=== PATIENT | male | born 1960 | race Caucasian/White ===

== ENCOUNTER 2024-01-16 14:30 | Emergency (ER) | payer BC, SELFPAY ==
[2024-01-16 14:32] VITALS: BP 197/96
[2024-01-16 14:50] LABS: % Basophils 0.5 % (0-2); % Eosinophils 1.2 % (0-6); % Immature Granulocytes 0.2 % (0-0.5); % Lymphocytes 20.9 % (20.5-51.1); % Monocytes 4.8 % (1.7-9.3); % Neutrophils 72.4 % (42.2-75.2); Absolute Eosinophils 0.1 10^3/uL (0-0.7); Absolute Lymphocytes 1.7 10^3/uL (1.2-3.4); Absolute Monocytes 0.4 10^3/uL (0.1-0.6); Hematocrit 47.7 % (39.0-52.0); Hemoglobin 16.5 g/dL (13.0-18.0); Mean Corp Hgb Conc. 34.6 g/dL (33.0-37.0); Mean Corpuscular Hgb 30.5 pg (27.0-31.0); Mean Corpuscular Volume 88.2 fL (80.0-94.0); Mean Platelet Volume 9.2 fL (7.4-10.4); Nucleated Red Blood Cells % 0 % (-); Platelet Count 292 10^3/uL (130-400); Red Blood Cell Count 5.41 10^6/uL (4.70-6.10); Red Cell Dist. Width 11.9 % (11.5-14.5); White Blood Cell Count 8.3 10^3/uL (4.8-10.8)
[2024-01-16 15:18] LABS: ALT (SGPT) 14 U/L (0-50); AST (SGOT) 22 U/L (17-59); Albumin 5.1 g/dl (3.5-5.0); Alkaline Phosphatase 89 U/L (38-126); Blood Urea Nitrogen 15 mg/dl (9-20); Calcium 10.3 mg/dl (8.4-10.2); Carbon Dioxide 18 mmol/L (22-30); Chloride 107 mmol/L (98-107); Glucose 127 mg/dl (70-99); Potassium 4.4 mmol/L (3.5-5.1); Sodium 138 mmol/L (135-145); Total Bilirubin 1.1 mg/dl (0.2-1.3); Total Protein 7.8 g/dl (6.3-8.2); eGFR > 60.00
[2024-01-16 15:23] LABS: Troponin I < 0.012 ng/ml
[2024-01-16 15:44] VITALS: BP 154/86
[2024-01-16 15:45] VITALS: BMI 32.9
[2024-01-16 17:55] LABS: Troponin I < 0.012 ng/ml
--- NOTE | 2024-01-16 17:55 | ED.GENMED ---
History of Present Illness
General
Chief Complaint: Chest Pain
Source: patient
Exam Limitations: none
Time Seen by Provider: 01/16/24 16:04
History of Present Illness
History of Present Illness:
63-year-old male who presents with left-sided chest pain. Patient states has been ongoing for about a week and has been intermittent. Today it has been there since he woke up this morning. He states when he belches seem to feel little better.
Sort of an ache under his left areola. It sits sort of right in that 1 spot. Not worse with breathing. Not worse with moving. No rash. No shortness of breath. No back pain. No motor weakness or radiation of the pain. The patient does admit
that he has not been taking his blood pressure or cholesterol medication for about a year since he saw his doctor last.
Past History
Past History
ED Past Medical History: HTN, Hypercholesterolemia and Other (Kidney stones, rosacea)
Phy Exam
Physical Exam
Physical Exam:
CONSTITUTIONAL Patient alert and oriented to person, place and time. Well-appearing. Vital signs reviewed.
HEAD atraumatic, normocephalic.
EYES eyelids normal to inspection, Extraocular muscles intact, Conjunctiva normal, Sclera normal.
NECK normal range of motion, Trachea midline, no jugular venous distention.
RESPIRATORY CHEST No respiratory distress noted, Chest expansion equal, Bilateral breath sounds clear.
CARDIOVASCULAR regular rate and rhythm, Heart sounds normal.
ABDOMEN abdomen nontender, Bowel sounds normal. No distention.
BACK normal inspection, no obvious deformities
UPPER EXTREMITY range of motion normal, Motor strength normal, no cyanosis, no edema.
LOWER EXTREMITY range of motion normal, Motor strength normal, no cyanosis, no edema.
NEURO Speech normal, No focal motor deficits, Navin coma scale 15, Memory normal, Cranial Nerves intact to screening exam.
SKIN skin warm, dry, and normal in color.
PSYCHIATRIC patient oriented to person place and time, Normal affect.
Scores
Heart Score for Chest Pain Patients
STEMI patient?: No
History: Slightly or Non-Suspicious
ECG: Normal
Age: >45 - <65 years
Risk Factors: 1 or 2 Risk Factors
Troponin: </= Normal Limit
Heart Score for Chest Pain Patients: 2
Heart Score Risk: 2.5% MACE over next 6 weeks
Course
Orders/Labs/Results
Orders:
Orders
01/16/24 14:35
Electrocardiogram (*1) Urgent
Reason for Study: Chest Pain
EKG- Treatment ONCE
01/16/24 14:41
Complete Blood Count/With Diff Urgent
Comprehensive Metabolic Panel Urgent
Troponin I Urgent
01/16/24 16:30
CR Chest - 2 Views Urgent
Comment:
Reason For Exam: L cp
01/16/24 16:45
Troponin I Urgent
Abnormal Lab Results
01/16/24
14:41
Carbon Dioxide 18 L mmol/L
(22-30)
Glucose 127 H mg/dl
(70-99)
Calcium 10.3 H mg/dl
(8.4-10.2)
Albumin 5.1 H g/dl
(3.5-5.0)
01/16/24 14:41
01/16/24 14:41
Vital Signs
Initial and Last Documented VS:
Initial Vital Signs
Temp Pulse Resp BP Pulse Ox
98.2 F 66 18 197/96 99
01/16/24 14:32 01/16/24 14:32 01/16/24 14:32 01/16/24 14:32 01/16/24 14:32
Last Documented Vital Signs
Temp Pulse Resp BP Pulse Ox
98.2 F 63 18 154/86 97
01/16/24 14:32 01/16/24 15:45 01/16/24 15:45 01/16/24 15:44 01/16/24 15:45
MDM/Problems Addressed
MDM/Problems Addressed:
Atypical chest pain
*Radiology
Radiology exam reviewed: all reviewed NAD by ED Provider
*Pulse Oximetry
Patient hypoxic: no
*EKG
Interpreted by ED Provider?: Yes
Interpretation: normal
Rate: normal
Rhythm: sinus
[place]: normal axis
Ischemia: no ischemia
*Round Cutter Operator Interpretation
Rate: normal
Interpretation: normal
Rhythm: sinus
*Critical Care Note
Total Time (30-74mins, 75-104mins- exclusive of procedures): Not Applicable
Data Reviewed
Review of Other/Old Records Reveals: Other (Previous EKG from December 2014 reviewed)
Source: patient and spouse
Prescriptions/Medications Considered But Not Given:
Consider nitroglycerin but low suspicion for ACS
Patient Management
Escalation/DeEscalation of care consider admission/obs:
ED workup negative including 2 troponins despite pain all day. Symptoms are atypical but will have the patient follow-up with cardiology. Patient referred to cardiology follow-up follow-up hotline
ED Attending Note
-
Portions of this chart may have been created with voice recognition software.� Occasional wrong word or��sound alike� substitutions may have occurred due to the inherent limitations of voice recognition software.
Discharge Plan
Departure
Patient Disposition: Home (Routine Discharge)
Date of Disposition: 01/16/24
Time of Disposition: 17:59
Patient with high blood pressure during this ER visit?: Yes
Discharge Problem:
Atypical chest pain
Instructions: Chest Pain CBC Follow Up
Prescriptions:
No Action
atorvastatin 20 mg Tablet
20 mg PO 1800
lisinopril 10 mg Tablet
10 mg PO 1800
doxycycline monohydrate 40 mg Capsule,Ir - Delay Rel,Biphase
40 mg PO 1800
Referrals:
Mariana Beavers, [Family Provider] -
Activity Restrictions/Additional Instructions:
Please take 81 mg of aspirin a day. Please avoid strenuous or exertional activity until cleared by cardiology. Please see cardiology in the next 48 hours for reevaluation. Return immediately for worsening pain, shortness breath, palpitations,
sweating, nausea, weakness of any kind, numbness, tingling or any other concerns.
Cardiology has been notified and a follow up appointment has been requested. Someone will call you on the next business day to schedule a follow up appointment.
Interventions
Interventions:
*Risk Screen - Suicide Last Done: 01/16/24 14:32
*General Assessment Last Done: 01/16/24 14:32
*Neglect/Abuse Screening Last Done: 01/16/24 14:32
ED- Fall Risk Assessment Last Done: 01/16/24 15:45
*ED COVID-19 Vaccine History Last Done: 01/16/24 15:45
ED- Cardiac Assessment Last Done: 01/16/24 15:45
Discharge Date and Time
Print Language: KINYARWANDA
[2024-01-16 17:56] VITALS: BP 145/97
[2024-01-16 18:00] VITALS: BP 150/92
== END 2024-01-16 18:22 | disposition home or self-care (01) ==
LOC: EMR 14:30
PROVIDERS: Emergency Medicine; EMERGENCY PHYSICIAN Emergency Medicine; FAMILY PHYSICIAN Family Medicine
DX: R07.89 Other chest pain (principal); I10 Essential (primary) hypertension; E78.00 Pure hypercholesterolemia, unspecified; L71.9 Rosacea, unspecified
CPT/HCPCS: 99283; 71046; 80053; 84484; 85025; 93005

== ENCOUNTER 2024-01-25 10:52 | Emergency (ER) | payer BC, SELFPAY ==
[2024-01-25 11:02] VITALS: BP 160/88
[2024-01-25 11:31] VITALS: BMI 32.4
[2024-01-25 11:52] LABS: % Basophils 0.4 % (0-2); % Eosinophils 0.8 % (0-6); % Immature Granulocytes 0.4 % (0-0.5); % Lymphocytes 17.1 % (20.5-51.1); % Monocytes 4.8 % (1.7-9.3); % Neutrophils 76.5 % (42.2-75.2); Absolute Eosinophils 0.1 10^3/uL (0-0.7); Absolute Lymphocytes 1.4 10^3/uL (1.2-3.4); Absolute Monocytes 0.4 10^3/uL (0.1-0.6); Hematocrit 43.8 % (39.0-52.0); Hemoglobin 16.1 g/dL (13.0-18.0); Mean Corp Hgb Conc. 36.8 g/dL (33.0-37.0); Mean Corpuscular Hgb 30.8 pg (27.0-31.0); Mean Corpuscular Volume 83.7 fL (80.0-94.0); Mean Platelet Volume 9.3 fL (7.4-10.4); Nucleated Red Blood Cells % 0 % (-); Platelet Count 312 10^3/uL (130-400); Red Blood Cell Count 5.23 10^6/uL (4.70-6.10); Red Cell Dist. Width 11.9 % (11.5-14.5); White Blood Cell Count 7.9 10^3/uL (4.8-10.8)
[2024-01-25 12:00] VITALS: BP 141/87
--- NOTE | 2024-01-25 12:08 | ED.GENMED ---
History of Present Illness
General
Chief Complaint: Chest Pain
Source: patient and records
Exam Limitations: none
Time Seen by Provider: 01/25/24 11:19
History of Present Illness
History of Present Illness:
Patient is a 63-year-old male presents to the emergency department complaining of left-sided chest pressure. Patient was seen here on January 15 for similar symptoms and was seen by cardiology. Patient is scheduled for a stress test in 2 days.
Patient is then to have a echo approximately in a month. 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 Patient developed significant pressure while laying down in his left chest. Patient did take Advil and seem to help.
Patient denies any palpitations. Patient does admit to mild shortness of breath but denies diaphoresis. Patient states he has the same symptoms occasionally with exertion. Patient does have a history of hypertension and elevated cholesterol and
has been noncompliant in the past with medication. There is a family history of heart disease in his mother. Patient denies diabetes. Patient does not smoke. Patient denies fever or chills. Patient denies cough, nasal congestion or sore throat.
Patient denies any GI or symptoms. Patient denies any leg pain or swelling. Patient does admit to frequent heartburn. In addition patient states he is under increased stress as his [id number] in the past week.
Past History
Past History
ED Past Medical History: HTN, Hypercholesterolemia and Other (Kidney stones, rosacea); Negative IDDM or NIDDM
Social History
Tobacco: Non-smoker
Family History
Family History: CAD
Review of Systems
Review of Systems
All Other Systems: ROS reviewed and negative except as documented in HPI and ROS
Constitutional: Denies fever or chills
EENT: Reports no symptoms
Respiratory: Reports trouble breathing; Denies cough
Cardiac: Reports chest pain; Denies diaphoresis or palpitations
ABD/GI: Reports no symptoms
: Reports no symptoms
Musculoskeletal: Reports no symptoms
Skin: Reports no symptoms
Neurological: Reports no symptoms
Hematologic/Lymphatic: Reports no symptoms
Psychiatric: Reports other (Increased stress as his [id number] within the last week)
Phy Exam
Physical Exam
Physical Exam:
Physical Exam
General: No apparent distress, alert and appropriate, well nourished, well hydrated
HENT: Normocephalic, supple with no lymphadenopathy, no thyromegaly
Eyes: Clear sclera, conjuctiva without injection
Heart: Regular rhythm and rate. No S3, S4. No murmur. No NVD, bruit
Lungs: No respiratory distress, no stridor, lung sounds clear and equal bilaterally, chest wall symmetrical and nontender
Abdomen: Soft, nontender, no organomegaly, no CVA tenderness, BS good
Neuro: Alert and oriented x 3, CN II - XII intact, no motor focality, no cerebellar dysfunction
Skin: no rash
Psychiatric: well kept. interactive and cooperative. Mildly anxious
Extremities: No edema, cyanosis, tenderness, Good and equal peripheral pulses.
Scores
Heart Score for Chest Pain Patients
STEMI patient?: No
History: Slightly or Non-Suspicious
ECG: Normal
Age: >45 - <65 years
Risk Factors: 1 or 2 Risk Factors
Troponin: </= Normal Limit
Heart Score for Chest Pain Patients: 2
Heart Score Risk: 2.5% MACE over next 6 weeks
Course
Orders/Labs/Results
Orders:
Orders
01/25/24 10:54
EKG [Electrocardiogram (*1)] Urgent
Reason for Study: Chest Pain
EKG- Treatment ONCE
01/25/24 11:44
Basic Metabolic Panel Urgent
Complete Blood Count/With Diff Urgent
Troponin I Urgent
01/25/24 12:42
Mag Hydrox/Al Hydrox/Simeth [Maalox] 30 ml Phenobarb/Hyoscy/Atropine/Scop [] 10 ml Viscous Lidocaine 2% [Xylocaine Viscous Cup] 10 ml PO NOW
Pantoprazole [Protonix IV] 80 mg IV NOW STA
Sucralfate [Carafate] 1 gram PO NOW STA
01/25/24 13:02
Mag Hydrox/Al Hydrox/Simeth [Maalox] 30 ml .ROUTE .STK-MED ONE
Phenobarb/Hyoscy/Atropine/Scop [] 10 ml .ROUTE .STK-MED ONE
Viscous Lidocaine 2% [Xylocaine Viscous Cup] 15 ml .ROUTE .STK-MED ONE
01/25/24 13:19
Basic Metabolic Panel Urgent
01/25/24 13:39
Troponin I Urgent
01/25/24 14:38
CMP [Comprehensive Metabolic Panel] Urgent
Abnormal Lab Results
01/25/24 01/25/24
11:44 13:19
Neutrophils % 76.5 H %
(42.2-75.2)
Lymphocytes % 17.1 L %
(20.5-51.1)
Carbon Dioxide 18 L mmol/L 18 L mmol/L
(22-30) (22-30)
Glucose 127 H mg/dl 115 H mg/dl
(70-99) (70-99)
01/25/24 11:44
Vital Signs
Initial and Last Documented VS:
Initial Vital Signs
Temp Pulse Resp BP Pulse Ox
98.2 F 83 19 160/88 97
01/25/24 11:02 01/25/24 11:02 01/25/24 11:02 01/25/24 11:02 01/25/24 11:02
Last Documented Vital Signs
Temp Pulse Resp BP Pulse Ox
98.2 F 62 11 136/87 97
01/25/24 11:02 01/25/24 14:15 01/25/24 14:15 01/25/24 14:00 01/25/24 14:15
*Radiology
Radiology exam reviewed: other (na)
*Pulse Oximetry
Patient hypoxic: no
*EKG
Interpreted by ED Provider?: Yes
EKG Intrepretation Date: 01/25/24
EKG Intrepretation Time: 12:15
Interpretation: abnormal
Comparison EKG: no changes
Heart Rate: 75
Rate: normal
Rhythm: sinus and PAC's
[place]: normal axis
Interval: normal interval
QRS Pattern: normal QRS
Ischemia: non-specific ST changes
*Foot Drill Operator Interpretation
Rate: normal
Interpretation: abnormal
Heart Rate: 75
Rhythm: sinus and PAC's
*Critical Care Note
Total Time (30-74mins, 75-104mins- exclusive of procedures): Not Applicable
Update Note
Update Note:
Patient's second troponin is unremarkable. I do not believe this to be cardiac. Could be musculoskeletal versus GI versus anxiety. Patient has stress test scheduled for Saturday. Patient does not require admission.
ED Attending Note
-
Portions of this chart may have been created with voice recognition software.� Occasional wrong word or��sound alike� substitutions may have occurred due to the inherent limitations of voice recognition software.
Discharge Plan
Departure
Patient Disposition: Home (Routine Discharge)
Date of Disposition: 01/25/24
Time of Disposition: 14:47
Patient with high blood pressure during this ER visit?: Yes
Condition: Good
Covid-19: Not Applicable
Discharge Problem:
Non-cardiac chest pain
Instructions: Acid Reflux and GERD in Adults (DC), Chest Pain CBC Follow Up, BLOOD PRESSURE
Prescriptions:
New
pantoprazole [Protonix] 40 mg tablet,delayed release (DR/EC)
40 mg PO BID Qty: 30 0RF
No Action
atorvastatin 20 mg Tablet
20 mg PO 1800
lisinopril 10 mg Tablet
10 mg PO 1800
doxycycline monohydrate 40 mg Capsule,Ir - Delay Rel,Biphase
40 mg PO 1800
Referrals:
Hayden Whittington MD [Family Provider] - Keep scheduled appt
Activity Restrictions/Additional Instructions:
Continue present medications and therapy. Make sure to have your stress test done on Saturday as scheduled. Any problems please return.
Interventions
Interventions:
*Risk Screen - Suicide Last Done: 01/25/24 11:02
*General Assessment Last Done: 01/25/24 11:02
*Neglect/Abuse Screening Last Done: 01/25/24 11:02
ED- Fall Risk Assessment Last Done: 01/25/24 11:31
*ED COVID-19 Vaccine History Last Done: 01/25/24 11:31
*Nursing Disposition Last Done: 01/25/24 15:02
ED- Cardiac Assessment Last Done: 01/25/24 11:31
Discharge Date and Time
Discharge Date/Time: 01/25/24 15:02
Print Language: LIBYAN
[2024-01-25 12:15] LABS: Troponin I < 0.012 ng/ml
[2024-01-25 12:21] LABS: Blood Urea Nitrogen 18 mg/dl (9-20); Carbon Dioxide 18 mmol/L (22-30); Chloride 107 mmol/L (98-107); Estimated Creatinine Clearance 86 ml/min; Glucose 127 mg/dl (70-99); Sodium 137 mmol/L (135-145); eGFR > 60.00
[2024-01-25 13:00] VITALS: BP 134/92
[2024-01-25] MEDS: MAALOX 50 PO (13:26)
[2024-01-25] MEDS: PROTONIX IV 80 MG IV (13:26)
[2024-01-25] MEDS: CARAFATE 1 GRAM PO (13:36)
[2024-01-25 13:56] LABS: Blood Urea Nitrogen 18 mg/dl (9-20); Calcium 9.7 mg/dl (8.4-10.2); Carbon Dioxide 18 mmol/L (22-30); Chloride 107 mmol/L (98-107); Estimated Creatinine Clearance 96 ml/min; Glucose 115 mg/dl (70-99); Sodium 137 mmol/L (135-145); eGFR > 60.00
[2024-01-25 14:00] VITALS: BP 136/87
[2024-01-25 14:14] LABS: Troponin I < 0.012 ng/ml
[2024-01-25 15:42] LABS: ALT (SGPT) 13 U/L (0-50); AST (SGOT) 20 U/L (17-59); Alkaline Phosphatase 84 U/L (38-126); Blood Urea Nitrogen 17 mg/dl (9-20); Carbon Dioxide 16 mmol/L (22-30); Chloride 108 mmol/L (98-107); Estimated Creatinine Clearance 86 ml/min; Glucose 122 mg/dl (70-99); Potassium 4.4 mmol/L (3.5-5.1); Sodium 136 mmol/L (135-145); Total Bilirubin 1.6 mg/dl (0.2-1.3); Total Protein 7.6 g/dl (6.3-8.2); eGFR > 60.00
== END 2024-01-25 15:02 | disposition home or self-care (01) ==
LOC: EMR 10:52
PROVIDERS: EMERGENCY PHYSICIAN Emergency Medicine; FAMILY PHYSICIAN Internal Medicine Cardiovascular Disease
DX: R07.89 Other chest pain (principal); I10 Essential (primary) hypertension; E78.00 Pure hypercholesterolemia, unspecified; Z82.49 Family history of ischemic heart disease and other diseases of the circulatory system; Z87.442 Personal history of urinary calculi
CPT/HCPCS: 99283; 96374; 80048; 80053; 84484; 85025; 93005

== ENCOUNTER → 2024-01-27 12:34 | Outpatient (REF) | payer BC, SELFPAY | LOC: RCS 12:34 | PROVIDERS: ATTENDING PHYSICIAN Internal Medicine Cardiovascular Disease; FAMILY PHYSICIAN Family Medicine | DX: E78.5 Hyperlipidemia, unspecified (principal); I10 Essential (primary) hypertension | CPT/HCPCS: 93017 ==

== ENCOUNTER → 2024-02-06 10:08 | Outpatient (REF) | payer BC, SELFPAY ==
[2024-02-06 13:36] LABS: Albumin 4.7 g/dl (3.5-5.0); Blood Urea Nitrogen 16 mg/dl (9-20); Calcium 10.1 mg/dl (8.4-10.2); Carbon Dioxide 19 mmol/L (22-30); Chloride 108 mmol/L (98-107); Glucose 149 mg/dl (70-99); Phosphorus 3.7 mg/dl (2.5-4.5); Potassium 4.3 mmol/L (3.5-5.1); Sodium 140 mmol/L (135-145); eGFR > 60.00
== END ==
LOC: HWLAB 10:08
PROVIDERS: ATTENDING PHYSICIAN Internal Medicine Cardiovascular Disease; FAMILY PHYSICIAN Family Medicine
DX: I10 Essential (primary) hypertension (principal)
CPT/HCPCS: 36415; 80069

== ENCOUNTER → 2024-02-19 10:04 | Outpatient (REF) | payer BC, SELFPAY | LOC: HWRCS 10:04 | PROVIDERS: ATTENDING PHYSICIAN Internal Medicine Cardiovascular Disease; FAMILY PHYSICIAN Family Medicine | DX: E78.5 Hyperlipidemia, unspecified (principal); I10 Essential (primary) hypertension | CPT/HCPCS: 93306 ==

== ENCOUNTER → 2024-08-24 10:40 | Outpatient (REF) | payer BC, SELFPAY ==
[2024-08-24 15:26] LABS: ALT (SGPT) 14 U/L (0-50); AST (SGOT) 20 U/L (17-59); Albumin 4.4 g/dl (3.5-5.0); Blood Urea Nitrogen 21 mg/dl (9-20); Calcium 9.3 mg/dl (8.4-10.2); Carbon Dioxide 22 mmol/L (22-30); Chloride 106 mmol/L (98-107); Glucose 146 mg/dl (70-99); HDL Cholesterol 39 mg/dl; LDL Cholesterol, Calculated 67 mg/dl; Potassium 4.6 mmol/L (3.5-5.1); Sodium 139 mmol/L (135-145); Total Cholesterol 127 mg/dl (50-199); Triglyceride 105 mg/dl (10-149); Very Low Density Lipoprotein 21 mg/dl (0-30); eGFR > 60.00
== END ==
LOC: HWLAB 10:40
PROVIDERS: ATTENDING PHYSICIAN Internal Medicine Cardiovascular Disease; FAMILY PHYSICIAN Family Medicine
DX: E78.5 Hyperlipidemia, unspecified (principal); I10 Essential (primary) hypertension
CPT/HCPCS: 36415; 80061; 80069; 84450; 84460

== ENCOUNTER → 2025-02-04 12:02 | Outpatient (REF) | payer BC, SELFPAY | LOC: HWRAD 12:02 | PROVIDERS: ATTENDING PHYSICIAN Specialist; FAMILY PHYSICIAN Family Medicine | DX: N20.0 Calculus of kidney (principal) | CPT/HCPCS: 74018 ==

== ENCOUNTER → 2025-02-19 13:59 | Outpatient (REF) | payer BC, SELFPAY ==
[2025-02-19 17:52] LABS: Urine Character Clear (Clear)
[2025-02-19 18:09] LABS: Urine Red Blood Cell 0-2 /HPF (0-2); Urine Squamous Cell 0-2 /LPF (Few); Urine White Cell 0-2 /HPF (0-5)
== END ==
LOC: CLAB 13:59
PROVIDERS: ATTENDING PHYSICIAN Specialist
DX: R31.29 Other microscopic hematuria (principal)
CPT/HCPCS: 81003; 81015

== ENCOUNTER → 2025-03-01 10:57 | Outpatient (REF) | payer BC, SELFPAY ==
[2025-03-01 16:41] LABS: PSA, Total - Screen 0.33 ng/ml (0.0-4.0)
== END ==
LOC: HWLAB 10:57
PROVIDERS: ATTENDING PHYSICIAN Specialist; FAMILY PHYSICIAN Family Medicine
DX: Z12.5 Encounter for screening for malignant neoplasm of prostate (principal)
CPT/HCPCS: 36415; G0103